=== PATIENT | male | born 1960 | race Caucasian/White ===

== ENCOUNTER 2016-11-11 20:57 | Emergency (ER) | payer OTHER ==
[~2016-11-11] VITALS: Ht 172.7 cm; Wt 91.2 kg
[~2016-11-11 20:57] MED LIST: ASPIR 8181 MG ORAL; CRESTOR20 MG ORAL; FOLPLEX 2.2 TA1 EACH PO; LOSARTAN POTASS50 MG ORAL; OMEPRAZOLE10 M1 ORAL; TRILIPIX45 MG PO
[2016-11-11 20:59] VITALS: BP 128/74
[2016-11-11] MEDS ORDERED: HYDROmorphone 1mg/ml Carpuject IVP ONE ×2 (21:30→22:15)
[2016-11-11] MEDS ORDERED: HYDROmorphone 1mg/ml Carpuject ONE (21:31)
[2016-11-11] MEDS ORDERED: VICODIN ES 7.51 EAC1 ORAL (22:52)
--- NOTE | 2016-11-11 22:53 | Emergency Room Report ---
History of Present Illness General Chief Complaint: Upper Extremity Injury Source: Patient, EMS Present Illness HPI This is a 56-year-old male who is right-hand dominant. He presents with chief complaint of left wrist pain. He was at work and getting out of a van. He slipped and fell on the outstretched arm. No loss of consciousness. He has deformity to the left wrist. No other injury. Did not pass out. Pain is 10 out of 10. Worse with movement. Nothing made it better. Allergies: Coded Allergies: SULFA (SULFONAMIDE ANTIBIOTICS) (Verified Allergy, Unknown, 11/11/16) Patient History Past Medical History: see triage record, old chart reviewed Past Surgical History: other Pertinent Family History: none Social History: Denies: smoking Immunizations: other Reviewed Nursing Documentation: PMH: Agreed, PSxH: Agreed Nursing Documentation-PMH Past Medical History: No History, Except For Hx Cardiac Problems: Yes Review of Systems Eye: Denies: blurred vision, eye pain ENT: Denies: ear pain, nose congestion, throat swelling Respiratory: Denies: cough, shortness of breath Cardiovascular: Denies: chest pain, palpitations Gastrointestinal: Denies: abdominal pain, diarrhea, nausea, vomiting Musculoskeletal: Reports: joint pain, Denies: back pain Skin: Denies: rash Neurological: Denies: headache, numbness Endocrine: Denies: increased thirst, increased urine Hematologic/Lymphatic: Denies: easy bruising All Other Systems: negative except mentioned in HPI Physical Exam Vital Signs Date Time Temp Pulse Resp B/P Pulse Ox O2 Delivery O2 Flow Rate FiO2 11/11/16 20:49 76 18 128/74 99 Room Air vitals normal Sp02 EP Interpretation: reviewed, normal General Appearance: well appearing, no apparent distress, alert Head: normocephalic, atraumatic Eyes: bilateral eye EOMI, bilateral eye PERRL ENT: hearing grossly normal, normal pharynx Neck: full range of motion, supple, no meningismus Respiratory: chest non-tender, lungs clear, normal breath sounds Cardiovascular #1: regular rate, rhythm, no murmur Gastrointestinal: normal bowel sounds, non tender, no mass, no organomegaly, no bruit, non-distended Musculoskeletal: back normal, gait/station normal, other - Left wrist: There is a dinner fork deformity of the wrist. Abrasion to the thumb. Sensation normal. Radial pulse 2+. Elbow nontender. Neurologic: alert, oriented x3 Psychiatric: mood/affect normal Skin: warm/dry Procedures Splinting Splinting : Consent: Verbal Location: Left wrist Hand-Made Type: plaster Splint: sugar-tong Pre-Proc Neuro Vasc Exam: normal Post-Proc Neuro Vasc Exam: normal Patient Tolerated: Well Complications: None Progress I did a hematoma block to the distal radius. After good anesthesia, I reduced the fracture of the distal radius. Patient was placed in a sugar tong. Tolerated procedure without a problem. Medical Decision Making Diagnostic Impression: Primary Impression: Distal radius fracture, left Qualified Codes: S52.532A - Colles' fracture of left radius, initial encounter for closed fracture ER Course Patient presents with a distal radius fracture. We'll discharge him with orthopedic followup. Other X-Ray Diagnostic Results Other X-Ray Diagnostic Results : X-Ray Ordered: Left wrist Date: Nov 11, 2016 Time: 22:52 EP Interpretation: Yes Findings: no dislocation, other - Distal radius fracture with displacement Number of Views: 3 Last Vital Signs Date Time Temp Pulse Resp B/P Pulse Ox O2 Delivery O2 Flow Rate FiO2 11/11/16 20:49 76 18 128/74 99 Room Air Status: improved Disposition: HOME, SELF-CARE Condition: Stable Scripts Hydrocodone Bit/Acetaminophen 7.5-300 Mg Tabl (VICODIN ES 7.5-300 MG TABLET) 1 Each Tablet 1 TAB ORAL Q6H Y for For Pain, #30 TAB 0 Refills Prov: INDIRA FRAZIER M.D. 11/11/16 Referrals: NOT CHOSEN [facility]/,REFERRING (PCP) Additional Instructions: Followup with orthopedic DrCarmen in one to 3 days. Return if worse. INDIRA FRAZIER M.D. Nov 11, 2016 22:53
[2016-11-11 23:16] VITALS: BP 135/89
--- NOTE | 2016-11-12 15:59 | Diagnostic Imaging Report ---
Clinical Indication:TRAUMA Technique: 3 views of the left wrist Comparison: None Findings: There is a comminuted impacted anteriorly angulated intra-articular fracture of the distal radius. No associated ulnar styloid fracture. Impression: Positive for distal radial fracture This agrees with the preliminary interpretation provided by the emergency room physician
== END 2016-11-11 23:19 | disposition home or self-care (01) ==
LOC: EDBD 20:57 → EMR 21:54
DX: S52.532A Colles' fracture of left radius, initial encounter for closed fracture (principal); Z88.2 Allergy status to sulfonamides; W19.XXXA Unspecified fall, initial encounter; Y92.9 Unspecified place or not applicable; Y99.0 Civilian activity done for income or pay
CPT/HCPCS: 25605; 73110; 96374; 96375; 99284; J1170; J2405